=== PATIENT | female | born 2000 | race Caucasian/White ===

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

== ENCOUNTER 2019-10-21 20:07 | Emergency (ER) | payer BC, OTHER ==
[~2019-10-21] VITALS: Ht 152.4 cm; Wt 56.8 kg
[2019-10-21] MEDS ORDERED: PARO20TA3 (20:15)
[2019-10-21] MEDS ORDERED: XULA1DIS (20:15)
[2019-10-21] MEDS ORDERED: IBUP-1022 PO (21:50)
[2019-10-21 22:05] VITALS: BP 138/99
--- NOTE | 2019-10-22 08:08 | REP ---
Pelvis right hip: Three views. History: Injury in a fall. Findings: AP and frog-leg views right hip and an AP view of the pelvis are presented. Bony pelvic ring is intact. No hip fracture is seen. Femoral heads are smooth and rounded and hip joint spaces are preserved. Periarticular soft tissues are unremarkable. Visualized bowel gas pattern is normal. Impression: Negative AP pelvis and right hip radiographs. Electronically Signed by Luís Mendoza MD 10/22/2019 08:00 A
--- NOTE | 2019-10-22 08:08 | REP ---
Sacrum and coccyx series: Three views. History: Injury in a fall. Findings: AP, tube angled, and lateral views of the sacrum and coccyx show no evidence of sacral or coccygeal fracture or displacement. Presacral soft tissues are not swollen. SI joints are unremarkable. Impression: Negative views of the sacrum and coccyx. No fracture seen. Electronically Signed by Luís Mendoza MD 10/22/2019 08:00 A
--- NOTE | 2019-10-22 08:09 | REP ---
Lumbar spine series: Five views. History: Injury in a fall. Findings: Five views of the lumbar spine show preserved vertebral body heights and normal alignment. Disc spaces are maintained. No fracture or collapse is seen. There is no evidence of spondylolysis or spondylolisthesis. Pedicles and posterior elements are intact. Psoas margins are symmetric. Sacrum and SI joints are unremarkable. Impression: Negative radiographs of the lumbar spine. Electronically Signed by Luís Mendoza MD 10/22/2019 08:01 A
== END 2019-10-21 22:06 | disposition home or self-care (01) ==
LOC: M ED 20:07
DX: S20.221A Contusion of right back wall of thorax, initial encounter (principal); S70.01XA Contusion of right hip, initial encounter; F41.9 Anxiety disorder, unspecified; F32.9 Major depressive disorder, single episode, unspecified; W17.89XA Other fall from one level to another, initial encounter; Y93.52 Activity, horseback riding; Y92.89 Other specified places as the place of occurrence of the external cause; Y99.8 Other external cause status

== ENCOUNTER → 2019-11-15 | Outpatient (CLI) | payer BC, OTHER ==
[~2019-11-15] MED LIST changes: +IBUP-1022 PO; +PARO20TA3; +XULA1DIS
== END ==
LOC: M LABSMTC 12:21
PROVIDERS: ATTEND Family Medicine
DX: Z11.59 Encounter for screening for other viral diseases (principal); Z20.828 Contact with and (suspected) exposure to other viral communicable diseases
CPT/HCPCS: C9803; U0003

== ENCOUNTER → 2020-01-23 | Outpatient (CLI) | payer BC, OTHER ==
--- NOTE | 2020-01-29 13:54 | REP ---
THYROID ULTRASOUND HISTORY: Goiter. TECHNIQUE: Real-time sonographic evaluation of thyroid performed bilaterally. FINDINGS: Thyroid is essentially normal in size, right lobe measuring 4.5 x 1.5 x 1.4 cm and left lobe 4.3 x 1.3 x 1.4 cm. No cystic or solid nodule is seen bilaterally. IMPRESSION: Unremarkable ultrasound thyroid as discussed above. MTDD
== END ==
LOC: M RAD 11:31
PROVIDERS: ATTEND Nurse Practitioner Family
DX: E04.0 Nontoxic diffuse goiter (principal)

== ENCOUNTER 2021-04-02 17:54 | Emergency (ER) | payer BC, OTHER ==
[~2021-04-02] VITALS: Ht 149.9 cm; Wt 64.4 kg
[2021-04-02 17:59] VITALS: BP 117/73
--- OUTSIDE RECORDS SUMMARY | 2021-04-02 18:07 | CCD ---
Author Author [facility] Organization [facility] Address Unknown Phone Unavailable Care Team Providers Care Professional Soccer Player Name Role Phone Maring, Rosalino PA Unavailable Unavailable Maring, Rosalino PA Unavailable Unavailable Maring, Rosalino PA Unavailable Unavailable Maring, Rosalino PA Unavailable Unavailable Maring, Rosalino PA Unavailable Unavailable Maring, Rosalino PA Unavailable Unavailable Maring, Rosalino PA Unavailable Unavailable Maring, Rosalino PA Unavailable Unavailable Maring, Rosalino PA Unavailable Unavailable Maring, Rosalino PA Unavailable Unavailable Maring, Rosalino PA Unavailable Unavailable Maring, Rosalino PA Unavailable Unavailable Maring, Rosalino PA Unavailable Unavailable Maring, Rosalino PA Unavailable Unavailable Maring, Rosalino PA Unavailable Unavailable Maring, Rosalino PA Unavailable Unavailable Zhang, L Daronda BENEFIT SPECIALIST Unavailable Unavailable Zhang, L Daronda BENEFIT SPECIALIST Unavailable Unavailable Zhang, L Daronda BENEFIT SPECIALIST Unavailable Unavailable Zhang, L Daronda BENEFIT SPECIALIST Unavailable Unavailable Zhang, L Daronda BENEFIT SPECIALIST Unavailable Unavailable Zhang, L Daronda BENEFIT SPECIALIST Unavailable Unavailable Zhang, L Daronda BENEFIT SPECIALIST Unavailable Unavailable Zhang, L Daronda BENEFIT SPECIALIST Unavailable Unavailable Zhang, L Daronda BENEFIT SPECIALIST Unavailable Unavailable Zhang, L Daronda BENEFIT SPECIALIST Unavailable Unavailable Zhang, L Daronda BENEFIT SPECIALIST Unavailable Unavailable Zhang, L Daronda BENEFIT SPECIALIST Unavailable Unavailable Zhang, L Daronda BENEFIT SPECIALIST Unavailable Unavailable Zhang, L Daronda BENEFIT SPECIALIST Unavailable Unavailable LETTIERE, A JORDAN PA Unavailable Unavailable LETTIERE, A JORDAN PA Unavailable Unavailable LETTIERE, A JORDAN PA Unavailable Unavailable LETTIERE, A JORDAN PA Unavailable Unavailable LETTIERE, A JORDAN PA Unavailable Unavailable LETTIERE, A JORDNA PA Unavailable Unavailable LETTIERE, A JORDAN PA Unavailable Unavailable LETTIERE, A JORDAN PA Unavailable Unavailable LETTIERE, A JORDAN PA Unavailable Unavailable LETTIERE, A JORDAN PA Unavailable Unavailable LETTIERE, A JORDAN PA Unavailable Unavailable LETTIERE, A JORDAN PA Unavailable Unavailable LETTIERE, A JORDAN PA Unavailable Unavailable LETTIERE, A JORDAN PA Unavailable Unavailable LETTIERE, A JORDAN PA Unavailable Unavailable LETTIERE, A JORDAN PA Unavailable Unavailable LETTIERE, A JORDAN PA Unavailable Unavailable LETTIERE, A JORDAN PA Unavailable Unavailable LETTIERE, A JORDAN PA Unavailable Unavailable LETTIERE, A JORDAN PA Unavailable Unavailable LETTIERE, A JORDAN PA Unavailable Unavailable LETTIERE, A JORDAN PA Unavailable Unavailable LETTIERE, A JORDAN PA Unavailable Unavailable LETTIERE, A JORDAN PA Unavailable Unavailable LETTIERE, A JORDAN PA Unavailable Unavailable LETTIERE, A JORDAN PA Unavailable Unavailable LETTIERE, A JORDAN PA Unavailable Unavailable LETTIERE, A JORDAN PA Unavailable Unavailable LETTIERE, A JORDAN PA Unavailable Unavailable LETTIERE, A JORDAN PA Unavailable Unavailable LETTIERE, A JORDAN PA Unavailable Unavailable Yosha, Wyatt Unavailable Unavailable Yosha, Wyatt Unavailable Unavailable Yosha, Wyatt Unavailable Unavailable Yosha, Wyatt Unavailable Unavailable Haris, Daniel Meadows MD Unavailable Unavailable Haris, Daniel Meadows MD Unavailable Unavailable Haris, Daniel Meadows MD Unavailable Unavailable Haris, Daniel Meadows MD Unavailable Unavailable Haris, Daniel Meadows MD Unavailable Unavailable Haris, Daniel Meadows MD Unavailable Unavailable Haris, Daniel Meadows MD Unavailable Unavailable Haris, Daniel Meadows MD Unavailable Unavailable Haris, Daniel Meadows MD Unavailable Unavailable Haris, Daniel Meadows MD Unavailable Unavailable Haris, Daniel Meadows MD Unavailable Unavailable Haris, Daniel Meadows MD Unavailable Unavailable Haris, Daniel Meadows MD Unavailable Unavailable Haris, Daniel Meadows MD Unavailable Unavailable Haris, Daniel Meadows MD Unavailable Unavailable Haris, Daniel Meadows MD Unavailable Unavailable Haris, Daniel Meadows MD Unavailable Unavailable Haris, Daniel Meadows MD Unavailable Unavailable Haris, Daniel Meadows MD Unavailable Unavailable Haris, Daniel Meadows MD Unavailable Unavailable Haris, Daniel Meadows MD Unavailable Unavailable Haris, Daniel Meadows MD Unavailable Unavailable Haris, Daniel Meadows MD Unavailable Unavailable Haris, Daniel Meadows MD Unavailable Unavailable Haris, A Dori LOZOYA Unavailable Unavailable Haris, A Dori LOZOYA Unavailable Unavailable Haris, A Dori LOZOYA Unavailable Unavailable Haris, A Dori LOZOYA Unavailable Unavailable Haris, A Dori LOZOYA Unavailable Unavailable Haris, Daniel Meadows MD Unavailable Unavailable Haris, Daniel Meadows MD Unavailable Unavailable Haris, A Dori LOZOYA Unavailable Unavailable Haris, A Dori LOZOYA Unavailable Unavailable Haris, A Dori LOZOYA Unavailable Unavailable Haris, A Dori LOZOYA Unavailable Unavailable Haris, Daniel Meadows MD Unavailable Unavailable Haris, Daniel Meadows MD Unavailable Unavailable Haris, Daniel Meadows MD Unavailable Unavailable Haris, Daniel Meadows MD Unavailable Unavailable Haris, A Dori LOZOYA Unavailable Unavailable Haris, A Dori LOZOYA Unavailable Unavailable Haris, A Dori LOZOYA Unavailable Unavailable Haris, A Dori LOZOYA Unavailable Unavailable Haris, Daniel Meadows MD Unavailable Unavailable Haris, Daniel Meadows MD Unavailable Unavailable Haris, Daniel Meadows MD Unavailable Unavailable Haris, Daniel Meadows MD Unavailable Unavailable Haris, Daniel Meadows MD Unavailable Unavailable Haris, Daniel Meadows MD Unavailable Unavailable Haris, Daniel Meadows MD Unavailable Unavailable Haris, Daniel Meadows MD Unavailable Unavailable Haris, Daniel Meadows MD Unavailable Unavailable Haris, Daniel Meadows MD Unavailable Unavailable Haris, Daniel Meadows MD Unavailable Unavailable Haris, Daniel Meadows MD Unavailable Unavailable Haris, Daniel Meadows MD Unavailable Unavailable Haris, Daniel Meadows MD Unavailable Unavailable Haris, Daniel Meadows MD Unavailable Unavailable Haris, Daniel Meadows MD Unavailable Unavailable Haris, Daniel Meadows MD Unavailable Unavailable Haris, Daniel Meadows MD Unavailable Unavailable Haris, Daniel Meadows MD Unavailable Unavailable Haris, Daniel Meadows MD Unavailable Unavailable Haris, Daniel Meadows MD Unavailable Unavailable Haris, Daniel Meadows MD Unavailable Unavailable Haris, Daniel Meadows MD Unavailable Unavailable Haris, Daniel Meadows MD Unavailable Unavailable Haris, Daniel Meadows MD Unavailable Unavailable Haris, Daniel Meadows MD Unavailable Unavailable Haris, A Dori LOZOYA Unavailable Unavailable Haris, A Dori LOZOYA Unavailable Unavailable Haris, A Dori LOZOYA Unavailable Unavailable Haris, A Dori LOZOYA Unavailable Unavailable Haris, A Dori LOZOYA Unavailable Unavailable Haris, A Dori LOZOYA Unavailable Unavailable Haris, A Dori LOZOYA Unavailable Unavailable Haris, A Dori LOZOYA Unavailable Unavailable Haris, A Droi LOZOYA Unavailable Unavailable Haris, A Dori LOZOYA Unavailable Unavailable Haris, A Dori LOZOYA Unavailable Unavailable Haris, A Dori LOZOYA Unavailable Unavailable Haris, A Dori LOZOYA Unavailable Unavailable Haris, A Dori LOZOYA Unavailable Unavailable PATEL, A TAFIEA VOCATIONAL NURSE LVN Unavailable Unavailable PATEL, A TAFIEA VOCATIONAL NURSE LVN Unavailable Unavailable PATEL, A TAFIEA VOCATIONAL NURSE LVN Unavailable Unavailable PATEL, A TAFIEA VOCATIONAL NURSE LVN Unavailable Unavailable PATEL, A TAFIEA VOCATIONAL NURSE LVN Unavailable Unavailable PATEL, A TAFIEA VOCATIONAL NURSE LVN Unavailable Unavailable PATEL, A TAFIEA VOCATIONAL NURSE LVN Unavailable Unavailable PATEL, A TAFIEA VOCATIONAL NURSE LVN Unavailable Unavailable PATEL, A TAFIEA VOCATIONAL NURSE LVN Unavailable Unavailable PATEL, A TAFIEA VOCATIONAL NURSE LVN Unavailable Unavailable PATEL, A TAFIEA VOCATIONAL NURSE LVN Unavailable Unavailable PATEL, A TAFIEA VOCATIONAL NURSE LVN Unavailable Unavailable PATEL, A TAFIEA VOCATIONAL NURSE LVN Unavailable Unavailable PATEL, A TAFIEA VOCATIONAL NURSE LVN Unavailable Unavailable PATEL, A TAFIEA VOCATIONAL NURSE LVN Unavailable Unavailable PATEL, A TAFIEA VOCATIONAL NURSE LVN Unavailable Unavailable PATEL, A TAFIEA VOCATIONAL NURSE LVN Unavailable Unavailable PATEL, A TAFIEA VOCATIONAL NURSE LVN Unavailable Unavailable PATEL, A TAFIEA VOCATIONAL NURSE LVN Unavailable Unavailable PATEL, A TAFIEA VOCATIONAL NURSE LVN Unavailable Unavailable PATEL, A TAFIEA VOCATIONAL NURSE LVN Unavailable Unavailable PATEL, A TAFIEA VOCATIONAL NURSE LVN Unavailable Unavailable PATEL, A TAFIEA VOCATIONAL NURSE LVN Unavailable Unavailable PATEL, A TAFIEA VOCATIONAL NURSE LVN Unavailable Unavailable PATEL, A TAFIEA VOCATIONAL NURSE LVN Unavailable Unavailable PATEL, A TAFIEA VOCATIONAL NURSE LVN Unavailable Unavailable PATEL, A TAFIEA VOCATIONAL NURSE LVN Unavailable Unavailable PATEL, A TAFIEA VOCATIONAL NURSE LVN Unavailable Unavailable PATEL, A TAFIEA VOCATIONAL NURSE LVN Unavailable Unavailable PATEL, A TAFIEA VOCATIONAL NURSE LVN Unavailable Unavailable PATEL, A TAFIEA VOCATIONAL NURSE LVN Unavailable Unavailable PATEL, A TAFIEA VOCATIONAL NURSE LVN Unavailable Unavailable PATEL, A TAFIEA VOCATIONAL NURSE LVN Unavailable Unavailable PATEL, A TAFIEA VOCATIONAL NURSE LVN Unavailable Unavailable PATEL, A TAFIEA VOCATIONAL NURSE LVN Unavailable Unavailable PATEL, A TAFIEA VOCATIONAL NURSE LVN Unavailable Unavailable PATEL, A TAFIEA VOCATIONAL NURSE LVN Unavailable Unavailable PATEL, A TAFIEA VOCATIONAL NURSE LVN Unavailable Unavailable PATEL, A TAFIEA VOCATIONAL NURSE LVN Unavailable Unavailable PATEL, A TAFIEA VOCATIONAL NURSE LVN Unavailable Unavailable PATEL, A TAFIEA VOCATIONAL NURSE LVN Unavailable Unavailable PATEL, A TAFIEA VOCATIONAL NURSE LVN Unavailable Unavailable PATEL, A TAFIEA VOCATIONAL NURSE LVN Unavailable Unavailable PATEL, A TAFIEA VOCATIONAL NURSE LVN Unavailable Unavailable PATEL, A TAFIEA VOCATIONAL NURSE LVN Unavailable Unavailable PATEL, A TAFIEA VOCATIONAL NURSE LVN Unavailable Unavailable PATEL, A TAFIEA VOCATIONAL NURSE LVN Unavailable Unavailable PATEL, A TAFIEA VOCATIONAL NURSE LVN Unavailable Unavailable PATEL, A TAFIEA VOCATIONAL NURSE LVN Unavailable Unavailable PATEL, A TAFIEA VOCATIONAL NURSE LVN Unavailable Unavailable PTAEL, A TAFIEA VOCATIONAL NURSE LVN Unavailable Unavailable PATEL, A TAFIEA VOCATIONAL NURSE LVN Unavailable Unavailable POTTER, VAZQUEZ Unavailable Unavailable POTTER, VAZQUEZ Unavailable Unavailable POTTER, VAZQUEZ Unavailable Unavailable POTTER, VAZQUEZ Unavailable Unavailable POTTER, VAZQUEZ Unavailable Unavailable Talat Moreno MD Unavailable Unavailable Talat Moreno MD Unavailable Unavailable Talat Moreno MD Unavailable Unavailable Talat Moreno MD Unavailable Unavailable Talat Moreno MD Unavailable Unavailable Talat Moreno MD Unavailable Unavailable Talat Moreno MD Unavailable Unavailable Talat Moreno MD Unavailable Unavailable Talat Moreno MD Unavailable Unavailable Talat Moreno MD Unavailable Unavailable Talat Moreno MD Unavailable Unavailable Talat Moreno MD Unavailable Unavailable Talat Moreno MD Unavailable Unavailable Talat Moreno MD Unavailable Unavailable aTlat Moreno MD Unavailable Unavailable Talat Moreno MD Unavailable Unavailable Talat Moreno MD Unavailable Unavailable Talat Moreno MD Unavailable Unavailable Talat Moreno MD Unavailable Unavailable Talat Moreno MD Unavailable Unavailable Talat Moreno MD Unavailable Unavailable Talat Moreno MD Unavailable Unavailable Talat Moreno MD Unavailable Unavailable Talat Moreno MD Unavailable Unavailable Talat Moreno MD Unavailable Unavailable Re-disclosure Warning The records that you are about to access may contain information from federally-assisted alcohol or drug abuse programs. If such information is present, then the following federally mandated warning applies: This information has been disclosed to you from records protected by federal confidentiality rules (42 CFR part 2). The federal rules prohibit you from making any further disclosure of this information unless further disclosure is expressly permitted by the written consent of the person to whom it pertains or as otherwise permitted by 42 CFR part 2. A general authorization for the release of medical or other information is NOT sufficient for this purpose. The Federal rules restrict any use of the information to criminally investigate or prosecute any alcohol or drug abuse patient.The records that you are about to access may contain highly sensitive health information, the redisclosure of which is protected by Article 27-F of the [place] Public Health law. If you continue you may have access to information: Regarding HIV / AIDS; Provided by facilities licensed or operated by the [place] Office of Mental Health; or Provided by the [place] Office for People With Developmental Disabilities. If such information is present, then the following [place] [facility] mandated warning applies: This information has been disclosed to you from confidential records which are protected by state law. State law prohibits you from making any further disclosure of this information without the specific written consent of the person to whom it pertains, or as otherwise permitted by law. Any unauthorized further disclosure in violation of state law may result in a fine or correction sentence or both. A general authorization for the release of medical or other information is NOT sufficient authorization for further disc losure. Family History Family Member Name Family Member Gender Family Member Status Date o f Status Description Data Source(s) Unknown Male Diagnosis 04/14/2016 12:00:00 AM EST [facility] ([facility]) Unknown Male Diagnosis 04/14/2016 12:00:00 AM EST [facility] ([facility]) Unknown Condition [facility] Unknown Condition [facility] Encounters Encounter Providers Location Date Indications Data Source(s ) Outpatient Attender: Deanna Moreno MD 1 12:41:33 PM EDT - 02/20/2021 01:47:12 PM EDT [facility] ([facility]) Attender: Wyatt Lyles [facility] 0 11/17/2020 11:24:00 AM EDT - 11/17/2020 11:24:00 AM EDT [facility] ([facility]) Attender: Wyatt Lyles [facility] 0 11/15/2020 10:50:00 AM EDT - 11/15/2020 10:50:00 AM EDT [facility] ([facility]) Attender: VAZQUEZ HOUGH [facility] 12:05:00 PM EDT - 10/26/2020 12:05:00 PM EDT [facility] ([facility]) Attender: VAZQUEZ REYEZNY [facility] 11:43:00 AM EDT - 10/25/2020 11:43:00 AM EDT [facility] ([facility]) Attender: Calvin VILLARREAL [facility] [place] 10:43:00 PM EDT - 10/21/2020 10:43:00 PM EDT [facility] ([facility]) Attender: Calvin VILLARREAL [facility] [place] 10:35:00 PM EDT - 10/21/2020 10:35:00 PM EDT [facility] ([facility]) Attender: Dori Moya 08:35:00 AM EDT - 10/20/2020 08:35:00 AM EDT [facility] ([facility]) Attender: BRENDA PATEL NP [facility] [place] 10/18 03:00:00 PM EDT - 10/18/2020 03:00:00 PM EDT Body mass index (BMI) 26.0-26.9, adultEn counter for initial prescription of contraceptive pillsEncounter for oth general cnsl and advice on contraceptionEncounter for elective termination of pregnancyProblems related to unwanted [facility] Body mass index (BMI) 26.0-26.9, adult Encounter for initial prescription of co ntraceptive pills Encounter for oth general cnsl and advic e on contraception Encounter for elective termination of pr egnancy Problems related to unwanted Attender: BRENDA PATEL NP [facility] [place] 09/30 02:25:00 PM EDT - 09/30/2020 02:25:00 PM EDT Encounter for oth general cnsl and advic e on contraceptionEncntr screen for dis of the bld/bld-form org/immun mechnsmProblems related to unwanted pregnancyEncntr screen for infections w sexl mode of transmiss [facility]) Encounter for oth general cnsl and advic e on contraception Encntr screen for dis of the bld/bld-for m org/immun mechnsm Problems related to unwanted Encntr screen for infections w sexl mode of transmiss [place] [address] [facility] [address] 08/23/2020 12:00:00 AM EDT [facility]CW1 ([facility]) [place] [address] [address] 07/27/2020 12:00:00 AM EDT eCW1 ([facility]) Outpatient [address] [address] [address] 07/23/2020 12:00:00 AM EDT [facility]CW1 ([facility]) Outpatient Attender: Rosalino HEMPHILL 07/21/19 12:19:25 PM EDT - 07/20/2020 12:34:48 PM EDT [facility] ([facility] ) Outpatient Attender: JORDAN Boland Prim macario 02/09/2020 03:30:00 PM EDT [facility] ([facility], [facility]) Immunizations Vaccine Date Status Description Data Source(s) COVID-19 VACCINE Freddy 08/05/2020 12:00:00 AM EDT completed [facility] Vaccine Series Complete: YESThis Data wa s Submitted to [facility] Via [facility]. Medications Medication Brand Name Start Date Product Form Dose Route Admi nistrative Instructions Pharmacy Instructions Status Indications Reaction Description Data Source(s) Misoprostol 0.2 MG Oral Tablet misoprostol 200 mcg tab let misoprostol 200 mcg tablet 10/18/2020 12:00:00 AM EDT completed 4 tabs buccally 24-48 hrs after mifepristone (#4) [facility] ([facility]) Sprintec (28) 0.25 mg-35 mcg tablet {21 (ethinyl estra diol 0.035 MG / norgestimate 0.25 MG Oral Tablet) / 7 (inert ingredients 1 MG Oral Tablet) } Pack 10/18/2020 12:00:00 AM EDT 1.00 {tablet} ORAL acti ve Sprintec 28 Day Pack [facility] ([facility]) Mifepristone 200 MG Oral Tablet mifepristone 200 mg ta blet mifepristone 200 mg tablet 10/18/2020 12:00:00 AM EDT completed 1 tab po administered to pt in clinic [facility] ([facility]) Ibuprofen 800 MG Oral Tablet ibuprofen 800 mg tablet ibuprof en 800 mg tablet 10/18/2020 12:00:00 AM EDT completed 1 tab po q 8 hrs prn pain [facility] ([facility]) MDD=3 Acetaminophen 500 MG Oral Tablet Acetaminophen Pain Re lief 500 mg tablet Acetaminophen Pain Relief 500 mg tablet 10/18/2020 12:00:00 AM EDT completed 2 PO q8 hrs prn pain, max dose 6 tabs per day (max 3000mg/day) [facility] ([facility]) Complete 14 mg iron-400 mcg tablet 21/iron fu/folic acid 09/30/2020 12:00:00 AM EDT active Take 1 tab PO QD. [facility] ([facility]) Clobetasol Propionate 0.5 MG/ML Medicated Shampoo [Aura sterling] Clobex 0.05 % Clobex 0.05 % 07/23/2020 12:00:00 AM EDT 1.0 {application} active Clobex 0.05 % eCW1 ([facility]) Clobetasol Propionate 0.5 MG/ML Medicated Shampoo [Aura sterling] Clobex 0.05 % Clobex 0.05 % 07/23/2020 12:00:00 AM EDT 1.0 {application} active Clobex 0.05 % eCW1 ([facility]) Fluocinonide 0.5 MG/ML Topical Solution Fluocinonide 0.05 % Fluocinonide 0.05 % 07/23/2020 12:00:00 AM EDT 1.0 {application} act yoel Fluocinonide 0.05 % eCW1 ([facility]) Fluocinonide 0.5 MG/ML Topical Solution Fluocinonide 0.05 % Fluocinonide 0.05 % 07/23/2020 12:00:00 AM EDT 1.0 {application} act yoel Fluocinonide 0.05 % eCW1 ([facility]) Fluocinonide 0.5 MG/ML Topical Solution Fluocinonide 0.05 % Fluocinonide 0.05 % 07/23/2020 12:00:00 AM EDT 1.0 {application} act yoel Fluocinonide 0.05 % eCW1 ([facility]) Clobetasol Propionate 0.5 MG/ML Medicated Shampoo [Aura sterling] Clobex 0.05 % Clobex 0.05 % 07/23/2020 12:00:00 AM EDT 1.0 {application} active Clobex 0.05 % eCW1 ([facility]) Trazodone Hydrochloride 50 MG Oral Tablet trazodone 50 mg tablet trazodone 50 mg tablet completed [facility] ([facility]) Insurance Providers Payer name Policy type / Coverage type Policy ID Covered democrat ID Covered democrat's relationship to macias Policy Macias Plan Information [employer] [id number] Parent [id number] [facility] Commercial Insurance Co. [id number] Parent [id number] FFS Self Pay [id number] Self [id number] BCBS EMPIRE YONY DIV [id number] [id number] [facility] [id number] FA2 [id number] [employer] Other 0 [id number] Family Dependent Aly O jaspreet 0 GHI P [id number] P [id number] UNITED HEALTHCARE O [id number] S [id number] [employer] Other 0 [id number] Family Dependent Aly O jaspreet 0 [employer] Other 0 [id number] Family Dependent Aly O jaspreet 0 [employer] Other 0 [id number] Family Dependent Aly O jaspreet 0 [employer] Other 0 [id number] Family Dependent Aly O jaspreet 0 [facility] Commercial [id number] Family Dependent [id number] [employer] Other 0 [id number] Family Dependent Aly O jaspreet 0 BCBS EMPIRE YONY DIV [id number] [id number] [facility] EMPIR [employer] CLAIMS ONLY [id number] FA2 [id number] [facility] [id number] FA2 [id number] [employer] Other 0 [id number] Family Dependent Aly O jaspreet 0 [facility] Commercial [id number] Family Dependent [id number] [employer] Other 0 [id number] Family Dependent Aly O jaspreet 0 [employer] Other 0 [id number] Family Dependent Aly O Jaspreet 0 [employer] Other 0 [id number] Family Dependent Aly O Jaspreet 0 [employer] Other 0 [id number] Family Dependent Aly O Jaspreet 0 [employer] Other 0 [id number] Family Dependent Aly O Jaspreet 0 [employer] Other 0 [id number] Family Dependent Aly O Jaspreet 0 [facility] [id number] SP [id number] [facility] [id number] [facility] DIV [id number] SP [id number] Problems, Conditions, and Diagnoses Code Display Name Description Problem Type Effective Dates Data Source(s) L40.9 [id number] Scalp psoriasis Problem 07/23/2020 12:00:00 AM EDT eCW1 ([facility]) Surgeries/Procedures Procedure Description Date Indications Data Source(s) Misoprostol #4 oral, 200 mcg 10/18/2020 12:00:00 AM EDT - 10/18/2020 12:00:00 AM EDT [facility] ([facility]) Mifepristone, oral, 200 mg 10/18/2020 12 :00:00 AM EDT - 10/18/2020 12:00:00 AM EDT [facility] ([facility]) OFFICE/OUTPATIENT VISIT, EST 10/18/2020 12:00:00 AM EDT - 10/18/2020 12:00:00 AM EDT [facility] ([facility]) OFFICE/OUTPATIENT VISIT, EST 09/30/2020 12:00:00 AM EDT - 09/30/2020 12:00:00 AM EDT [facility] ([facility]) TRANSVAGINAL US, OBSTETRIC 09/30/2020 12 :00:00 AM EDT - 09/30/2020 12:00:00 AM EDT [facility] ([facility]) N.GONORRHOEAE, DNA, AMP PROB 09/30/2020 12:00:00 AM EDT - 09/30/2020 12:00:00 AM EDT [facility] ([facility]) CHYLMD TRACH, DNA, AMP PROBE 09/30/2020 12:00:00 AM EDT - 09/30/2020 12:00:00 AM EDT [facility] ([facility]) HEMOGLOBIN 09/30/2020 12:00:00 AM EDT - 09/30/2020 1 2:00:00 AM EDT [facility] ([facility]) Results ID Date Data Source [id number] 09/30/2020 03:11:34 PM EDT [facility] ([facility]) Name Value Range Interpretation Code Description Data Valery rce(s) Supporting Document(s) 12.60 gm/dL Hemoglobin [facility] ([facility]) ID Date Data Source [id number] 09/30/2020 12:00:00 AM EDT [facility] ([facility]) Name Value Range Interpretation Code Description Data Valery rce(s) Supporting Document(s) Negative Normal (applies to non-numeric resul ts) Urine CT/GC Combo - GC NextGen ([facility]) : Yes Performed by: CDD ([id number]) ID Date Data Source [id number] 09/30/2020 12:00:00 AM EDT NextGen ([facility]) Name Value Range Interpretation Code Description Data Valery rce(s) Supporting Document(s) Negative Normal (applies to non-numeric resul ts) Urine CT/GC Combo - CT NextGen ([facility]) Procedure Social History Code Duration Value Status Description Data Source(s ) Smoking 11/17/2020 12:00:00 AM EDT Never smoker completed Never s moker [facility] ([facility]) Smoking 10/20/2020 12:00:00 AM EDT Never smoker completed Never s moker [facility] ([facility]) Smoking 07/23/2020 12:00:00 AM EDT Never Smoker completed Never S moker eCW1 ([facility]) Smoking 07/23/2020 12:00:00 AM EDT Never Smoker completed Never S moker eCW1 ([facility]) Smoking 07/23/2020 12:00:00 AM EDT Never Smoker completed Never S moker eCW1 ([facility]) Smoking 02/09/2020 12:00:00 AM EDT Patient has never smoked co mpleted Patient has never smoked MEDENT ([facility]) Vital Signs ID Date Data Source UNK Name Value Range Interpretation Code Description Data Source(s) Body height 149.86 cm 149.86 cm [facility] ([facility] Body weight 59.421 kg 59.421 kg [facility] ([facility]) Systolic blood pressure 110 mm[Hg] 110 mm[Hg] N extGen ([facility]) Diastolic blood pressure 70 mm[Hg] 70 mm[Hg] NextGen ([facility]) Body mass index (BMI) [Ratio] 26.46 kg/m2 Overweight 26.46 kg/m2 NextGen ([facility]) Body height 149.86 cm 149.86 cm NextGen ([facility]) Body weight 59.874 kg 59.874 kg NextGen ([facility]) Systolic blood pressure 124 mm[Hg] 124 mm[Hg] N extGen ([facility]) Diastolic blood pressure 72 mm[Hg] 72 mm[Hg] NextGen ([facility]) Body mass index (BMI) [Ratio] 26.66 kg/m2 Overweight 26.66 kg/m2 NextGen ([facility]) Body weight 132 [lb_av] 132 [lb_av] W1 ([facility], [facility]) Body height 60 [in_i] 60 [in_i] eCW1 ([facility]) Body mass index (BMI) [Ratio] 25.78 kg/m2 25.78 kg/m2 eCW1 ([facility]) Systolic blood pressure 126 mm[Hg] 126 mm[Hg] e CW1 ([facility]) Diastolic blood pressure 74 mm[Hg] 74 mm[Hg] eCW1 ([facility]) Systolic blood pressure 112 mm[Hg] 112 mm[Hg] M EDENT ([facility]) Diastolic blood pressure 78 mm[Hg] 78 mm[Hg] MEDENT ([facility]) Heart rate 112 /min 112 /min MEDENT ([facility]) Respiratory rate 14 /min 14 /[facility] Oxygen saturation in Arterial blood by Pulse oximetry 98 % 98 % MEDENT ([facility]) Body temperature 99.2 [degF] 99.2 [degF] MEDENT ([facility]) Body weight 120.00 [lb_av] 120.00 [lb_av] MEDEN T ([facility]) Body height 59 [in_i] 59 [in_i] MEDENT ([facility]) 4'11" Body mass index (BMI) [Ratio] 24.2 kg/m2 24.2 k g/m2 MEDENT ([facility]) Patient Treatment Plan of Care Planned Activity Planned Date Details Description Data Source (s) Mifepristone 200 MG Oral Tablet 10/18/2020 12:00:00 AM EDT [facility] Ibuprofen 800 MG Oral Tablet 10/18/2020 12:00:00 AM EDT Critical access hospital [facility] Sprintec (28) 0.25 mg-35 mcg tablet 10/18/2020 12:00:00 AM EDT [facility] ([facility]) Acetaminophen 500 MG Oral Tablet 10/18/2020 12:00:00 AM EDT NextGen ([facility]) Misoprostol 0.2 MG Oral Tablet 10/18/2020 12:00:00 AM EDT NextGen ([facility]) Complete 14 mg iron-400 mcg tablet 09/30/2020 12:00:00 AM EDT [facility] ([facility]) Fluocinonide 0.5 MG/ML Topical Solution 07/23/2020 12:00:00 AM EDT eCW1 ([facility]) Clobetasol Propionate 0.5 MG/ML Medicated Shampoo [Aura sterling] 07/23/2020 12:00:00 AM EDT eCW1 ([facility]) Fluocinonide 0.5 MG/ML Topical Solution 07/23/2020 12:00:00 AM EDT eCW1 ([facility]) Clobetasol Propionate 0.5 MG/ML Medicated Shampoo [Aura sterling] 07/23/2020 12:00:00 AM EDT eCW1 ([facility]) Fluocinonide 0.5 MG/ML Topical Solution 07/23/2020 12:00:00 AM EDT eCW1 ([facility]) Clobetasol Propionate 0.5 MG/ML Medicated Shampoo [Aura sterling] 07/23/2020 12:00:00 AM EDT eCW1 ([facility]) Trazodone Hydrochloride 50 MG Oral Tablet [facility] ([facility])
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
--- OUTSIDE RECORDS SUMMARY | 2021-04-02 21:12 | CCD ---
Author Author [facility] Organization [facility] Address Unknown Phone Unavailable Care Team Providers Care Mobile Disc Jockey Name Role Phone Maring, Rosalino PA Unavailable [...] Rosalino PA Unavailable Unavailable Zhang, L Daronda JAVASCRIPT WEB DEVELOPER Unavailable Unavailable Zhang, L Daronda JAVASCRIPT WEB DEVELOPER Unavailable Unavailable Zhang, L Daronda JAVASCRIPT WEB DEVELOPER Unavailable Unavailable Zhang, L Daronda JAVASCRIPT WEB DEVELOPER Unavailable Unavailable Zhang, L Daronda JAVASCRIPT WEB DEVELOPER Unavailable Unavailable Zhang, L Daronda JAVASCRIPT WEB DEVELOPER Unavailable Unavailable Zhang, L Daronda JAVASCRIPT WEB DEVELOPER Unavailable Unavailable Zhang, L Daronda JAVASCRIPT WEB DEVELOPER Unavailable Unavailable Zhang, L Daronda JAVASCRIPT WEB DEVELOPER Unavailable Unavailable Zhang, L Daronda JAVASCRIPT WEB DEVELOPER Unavailable Unavailable Zhang, L Daronda JAVASCRIPT WEB DEVELOPER Unavailable Unavailable Zhang, L Daronda JAVASCRIPT WEB DEVELOPER Unavailable Unavailable Zhang, L Daronda JAVASCRIPT WEB DEVELOPER Unavailable Unavailable Zhang, L Daronda JAVASCRIPT WEB DEVELOPER Unavailable Unavailable LETTIERE, A JORDAN PA Unavailable [...] Wyatt Unavailable Unavailable Yosha, Wyatt Unavailable Unavailable Daniel Carballo MD Unavailable Unavailable Daniel Carballo MD Unavailable Unavailable Daniel Carballo MD Unavailable Unavailable Haris, Daniel Meadows MD [...] Unavailable Haris, A Dori LOZOYA Unavailable Unavailable Harsi, A Dori LOZOYA Unavailable Unavailable Haris, A [...] Unavailable Haris, A Dori LOZOYA Unavailable Unavailable Hairs, A Dori LOZOYA Unavailable Unavailable Haris, A Dori MD Unavailable Unavailable Haris, A Dori LOZOYA Unavailable Unavailable Haris, A Dori LOZOYA Unavailable Unavailable Haris, A Dori LOZOYA Unavailable Unavailable Haris, A Dori LOZOYA Unavailable Unavailable Haris, A Dori MD Unavailable Unavailable Haris, A Dori MD Unavailable Unavailable Haris, A Dori LOZOYA Unavailable Unavailable Haris, A Dori MD Unavailable Unavailable Haris, A Dori LOZOYA Unavailable Unavailable Haris, A Dori LOZOYA Unavailable Unavailable Haris, A Dori MD Unavailable Unavailable Haris, A Dori MD Unavailable Unavailable Haris, A Dori MD Unavailable Unavailable Haris, A Dori MD Unavailable Unavailable Haris, A Dori MD Unavailable Unavailable PATEL, A TAFIEA PRECISION AIRCRAFT STRUCTURE ASSEMBLER Unavailable Unavailable PATEL, A TAFIEA PRECISION AIRCRAFT STRUCTURE ASSEMBLER Unavailable Unavailable PATEL, A TAFIEA PRECISION AIRCRAFT STRUCTURE ASSEMBLER Unavailable Unavailable PATEL, A TAFIEA PRECISION AIRCRAFT STRUCTURE ASSEMBLER Unavailable Unavailable PATEL, A TAFIEA PRECISION AIRCRAFT STRUCTURE ASSEMBLER Unavailable Unavailable PATEL, A TAFIEA PRECISION AIRCRAFT STRUCTURE ASSEMBLER Unavailable Unavailable PATEL, A TAFIEA PRECISION AIRCRAFT STRUCTURE ASSEMBLER Unavailable Unavailable PATEL, A TAFIEA PRECISION AIRCRAFT STRUCTURE ASSEMBLER Unavailable Unavailable PATEL, A TAFIEA PRECISION AIRCRAFT STRUCTURE ASSEMBLER Unavailable Unavailable PATEL, A TAFIEA PRECISION AIRCRAFT STRUCTURE ASSEMBLER Unavailable Unavailable PATEL, A TAFIEA PRECISION AIRCRAFT STRUCTURE ASSEMBLER Unavailable Unavailable PATEL, A TAFIEA PRECISION AIRCRAFT STRUCTURE ASSEMBLER Unavailable Unavailable PATEL, A TAFIEA PRECISION AIRCRAFT STRUCTURE ASSEMBLER Unavailable Unavailable PATEL, A TAFIEA PRECISION AIRCRAFT STRUCTURE ASSEMBLER Unavailable Unavailable PATEL, A TAFIEA PRECISION AIRCRAFT STRUCTURE ASSEMBLER Unavailable Unavailable PATEL, A TAFIEA PRECISION AIRCRAFT STRUCTURE ASSEMBLER Unavailable Unavailable PATEL, A TAFIEA PRECISION AIRCRAFT STRUCTURE ASSEMBLER Unavailable Unavailable PATEL, A TAFIEA PRECISION AIRCRAFT STRUCTURE ASSEMBLER Unavailable Unavailable PATEL, A TAFIEA PRECISION AIRCRAFT STRUCTURE ASSEMBLER Unavailable Unavailable PATEL, A TAFIEA PRECISION AIRCRAFT STRUCTURE ASSEMBLER Unavailable Unavailable PATEL, A TAFIEA PRECISION AIRCRAFT STRUCTURE ASSEMBLER Unavailable Unavailable PATEL, A TAFIEA PRECISION AIRCRAFT STRUCTURE ASSEMBLER Unavailable Unavailable PATEL, A TAFIEA PRECISION AIRCRAFT STRUCTURE ASSEMBLER Unavailable Unavailable PATEL, A TAFIEA PRECISION AIRCRAFT STRUCTURE ASSEMBLER Unavailable Unavailable PATEL, A TAFIEA PRECISION AIRCRAFT STRUCTURE ASSEMBLER Unavailable Unavailable PATEL, A TAFIEA PRECISION AIRCRAFT STRUCTURE ASSEMBLER Unavailable Unavailable PATEL, A TAFIEA PRECISION AIRCRAFT STRUCTURE ASSEMBLER Unavailable Unavailable PATEL, A TAFIEA PRECISION AIRCRAFT STRUCTURE ASSEMBLER Unavailable Unavailable PATEL, A TAFIEA PRECISION AIRCRAFT STRUCTURE ASSEMBLER Unavailable Unavailable PATEL, A TAFIEA PRECISION AIRCRAFT STRUCTURE ASSEMBLER Unavailable Unavailable PATEL, A TAFIEA PRECISION AIRCRAFT STRUCTURE ASSEMBLER Unavailable Unavailable PATEL, A TAFIEA PRECISION AIRCRAFT STRUCTURE ASSEMBLER Unavailable Unavailable PATEL, A TAFIEA PRECISION AIRCRAFT STRUCTURE ASSEMBLER Unavailable Unavailable PATEL, A TAFIEA PRECISION AIRCRAFT STRUCTURE ASSEMBLER Unavailable Unavailable PATEL, A TAFIEA PRECISION AIRCRAFT STRUCTURE ASSEMBLER Unavailable Unavailable PATEL, A TAFIEA PRECISION AIRCRAFT STRUCTURE ASSEMBLER Unavailable Unavailable PATEL, A TAFIEA PRECISION AIRCRAFT STRUCTURE ASSEMBLER Unavailable Unavailable PATEL, A TAFIEA PRECISION AIRCRAFT STRUCTURE ASSEMBLER Unavailable Unavailable PATEL, A TAFIEA PRECISION AIRCRAFT STRUCTURE ASSEMBLER Unavailable Unavailable PATEL, A TAFIEA PRECISION AIRCRAFT STRUCTURE ASSEMBLER Unavailable Unavailable PATEL, A TAFIEA PRECISION AIRCRAFT STRUCTURE ASSEMBLER Unavailable Unavailable PATEL, A TAFIEA PRECISION AIRCRAFT STRUCTURE ASSEMBLER Unavailable Unavailable PATEL, A TAFIEA PRECISION AIRCRAFT STRUCTURE ASSEMBLER Unavailable Unavailable PATEL, A TAFIEA PRECISION AIRCRAFT STRUCTURE ASSEMBLER Unavailable Unavailable PATEL, A TAFIEA PRECISION AIRCRAFT STRUCTURE ASSEMBLER Unavailable Unavailable PATEL, A TAFIEA PRECISION AIRCRAFT STRUCTURE ASSEMBLER Unavailable Unavailable PATEL, A TAFIEA PRECISION AIRCRAFT STRUCTURE ASSEMBLER Unavailable Unavailable PATEL, A TAFIEA PRECISION AIRCRAFT STRUCTURE ASSEMBLER Unavailable Unavailable PATEL, A TAFIEA PRECISION AIRCRAFT STRUCTURE ASSEMBLER Unavailable Unavailable PATEL, A TAFIEA PRECISION AIRCRAFT STRUCTURE ASSEMBLER Unavailable Unavailable PATEL, A TAFIEA PRECISION AIRCRAFT STRUCTURE ASSEMBLER Unavailable Unavailable PATEL, A TAFIEA PRECISION AIRCRAFT STRUCTURE ASSEMBLER Unavailable Unavailable POTTER, VAZQUEZ Unavailable Unavailable POTTER, [...] is protected by Article 27-F of the [facility] Public Health law. If you continue you may have access to information: Regarding HIV / AIDS; Provided by facilities licensed or operated by the [facility] Office of Mental Health; or Provided by the [facility] Office for People With Developmental Disabilities. If such information is present, then the following [facility] mandated warning applies: This information has been [...] law may result in a fine or senior care sentence or both. A general authorization for the release of medical or other information is NOT sufficient authorization for further disc losure. Family History Family Member Name Family Member Gender Family Member Status Date o f Status Description Data Source(s) Unknown Male Diagnosis 04/14/2016 12:00:00 AM EST [facility] ([facility]) Unknown Male Diagnosis 04/14/2016 12:00:00 AM EST [facility] ([facility]) Unknown Condition [facility] Unknown Condition [facility] Encounters Encounter Providers Location Date Indications Data Source(s ) Outpatient Attender: Deanna Moreno MD 1 12:41:33 PM EDT - 02/20/2021 01:47:12 PM EDT [facility] ([facility]) Attender: Wyatt Lyles PPCWNY [facility] Coordination 0 11/17/2020 11:24:00 AM EDT - 11/17/2020 11:24:00 AM EDT [facility] ([facility]) Attender: Wyatt Lyles PPCZACK Care Coordination 0 11/15/2020 10:50:00 AM EDT - 11/15/2020 10:50:00 AM EDT [facility] ([facility]) Attender: VAZQUEZ HOUGH Care Coordination 12:05:00 PM EDT - 10/26/2020 12:05:00 PM EDT [facility] ([facility]) Attender: VAZQUEZ HOUGH Care Coordination 11:43:00 AM EDT - 10/25/2020 11:43:00 AM EDT [facility] ([facility]) Attender: Calvin Zhang JAVASCRIPT WEB DEVELOPER [facility] [place] 10:43:00 PM EDT - 10/21/2020 10:43:00 PM EDT [facility] ([facility]) Attender: Calvin Zhang JAVASCRIPT WEB DEVELOPER [facility] [place] 10:35:00 PM EDT - 10/21/2020 10:35:00 PM EDT [facility] ([facility]) Attender: Dori Moya 08:35:00 AM EDT - 10/20/2020 08:35:00 AM EDT [facility] ([facility]) Attender: BRENDA PATEL NP [facility] [place] 10/18 03:00:00 PM EDT - 10/18/2020 03:00:00 PM EDT Body mass index (BMI) 26.0-26.9, adultEn counter for initial prescription of contraceptive pillsEncounter for oth general cnsl and advice on contraceptionEncounter for elective termination of pregnancyProblems related to unwanted [facility] ([facility]) Body mass index (BMI) 26.0-26.9, adult Encounter for initial prescription of co ntraceptive pills Encounter for oth general cnsl and advic e on contraception Encounter for elective termination of pr egnancy Problems related to unwanted Attender: BRENDA PATEL NP [facility] [place] 09/30 02:25:00 PM EDT - 09/30/2020 02:25:00 PM EDT Encounter for oth general cnsl and advic e on contraceptionEncntr screen for dis of the bld/bld-form org/immun mechnsmProblems related to unwanted pregnancyEncntr screen for infections w sexl mode of transmiss NextGen ([facility]) Encounter for oth general cnsl and advic e on contraception Encntr screen for dis of the bld/bld-for m org/immun mechnsm Problems related to unwanted Encntr screen for infections w sexl mode of transmiss [place] [address] [facility] [address] 08/23/2020 12:00:00 AM EDT eCW1 ([facility]) Unknown [address] [facility] [address] 07/27/2020 12:00:00 AM EDT eCW1 ([facility]) Outpatient [address] [facility] [address] 07/23/2020 12:00:00 AM EDT eCW1 ([facility]) Outpatient Attender: Rosalino HEMPHILL 07/21/19 12:19:25 PM EDT - 07/20/2020 12:34:48 PM EDT [facility]Tap ([facility] ) Outpatient Attender: JORDAN sorto 02/09/2020 03:30:00 PM EDT [facility] ([facility]) Immunizations Vaccine Date Status Description Data Source(s) COVID-19 VACCINE Freddy 08/05/2020 12:00:00 AM EDT completed NYSIIS Vaccine Series Complete: YESThis Data wa s Submitted to [facility] Via [employer]. Medications Medication Brand Name Start Date Product Form Dose Route Admi nistrative Instructions Pharmacy Instructions Status Indications Reaction Description Data Source(s) Misoprostol 0.2 MG Oral Tablet misoprostol 200 mcg tab let misoprostol 200 mcg tablet 10/18/2020 12:00:00 AM EDT completed 4 tabs buccally 24-48 hrs after mifepristone (#4) [facility] ([facility]) Sprintec (28) 0.25 mg-35 mcg tablet {21 (ethinyl estra diol 0.035 MG / norgestimate 0.25 MG Oral Tablet) / 7 (inert ingredients 1 MG Oral Tablet) } Pack 10/18/2020 12:00:00 AM EDT 1.00 {tablet} ORAL acti ve Sprintec 28 Day Pack [facility]Gen ([facility]) Mifepristone 200 MG Oral Tablet mifepristone 200 mg ta blet mifepristone 200 mg tablet 10/18/2020 12:00:00 AM EDT completed 1 tab po administered to pt in clinic [facility] Ibuprofen 800 MG Oral Tablet ibuprofen 800 mg tablet ibuprof en 800 mg tablet 10/18/2020 12:00:00 AM EDT completed 1 tab po q 8 hrs prn pain [facility] MDD=3 Acetaminophen 500 MG Oral Tablet Acetaminophen Pain Re lief 500 mg tablet Acetaminophen Pain Relief 500 mg tablet 10/18/2020 12:00:00 AM EDT completed 2 PO q8 hrs prn pain, max dose 6 tabs per day (max 3000mg/day) FadiaGen ([facility]) Complete 14 mg iron-400 mcg tablet 21/iron fu/folic acid 09/30/2020 12:00:00 AM EDT active Take 1 tab PO QD. Rachana ([facility]) Clobetasol Propionate 0.5 MG/ML Medicated Shampoo [Aura sterling] Clobex 0.05 % Clobex 0.05 % 07/23/2020 12:00:00 AM EDT 1.0 {application} active Clobex 0.05 % eCW1 ([facility]) Clobetasol Propionate 0.5 MG/ML Medicated Shampoo [Aura sterling] Clobex 0.05 % Clobex 0.05 % 07/23/2020 12:00:00 AM EDT 1.0 {application} active Clobex 0.05 % eCW1 ([facility]) Fluocinonide 0.5 MG/ML Topical Solution Fluocinonide 0.05 % Fluocinonide 0.05 % 07/23/2020 12:00:00 AM EDT 1.0 {application} act yoel Fluocinonide 0.05 % eCW1 ([facility]) Fluocinonide 0.5 MG/ML Topical Solution Fluocinonide 0.05 % Fluocinonide 0.05 % 07/23/2020 12:00:00 AM EDT 1.0 {application} act yoel Fluocinonide 0.05 % eCW1 ([facility]) Fluocinonide 0.5 MG/ML Topical Solution Fluocinonide 0.05 % Fluocinonide 0.05 % 07/23/2020 12:00:00 AM EDT 1.0 {application} act yoel Fluocinonide 0.05 % eCW1 ([facility]) Clobetasol Propionate 0.5 MG/ML Medicated Shampoo [Aura sterling] Clobex 0.05 % Clobex 0.05 % 07/23/2020 12:00:00 AM EDT 1.0 {application} active Clobex 0.05 % eCW1 ([facility]) Trazodone Hydrochloride 50 MG Oral Tablet trazodone 50 mg tablet trazodone 50 mg tablet [facility] Insurance Providers Payer name Policy type / Coverage type Policy ID Covered green party ID Covered green party's relationship to macias Policy Macias Plan Information [facility] Commercial Insurance Co. [id number] Parent [id number] [facility] Commercial Insurance Co. [id number] Parent [id number] FFS Self Pay [id number] Self [id number] [facility] [id number] FA2 [id number] [facility] [id number] FA2 [id number] [employer] Other 0 [id number] Family Dependent Aly O jaspreet 0 GHI P [id number] P [id number] UNITED [employer] O [id number] S [id number] [employer] Other 0 [id number] Family Dependent Aly O jaspreet 0 [employer] Other 0 [id number] Family Dependent Aly O jaspreet 0 [employer] Other 0 [id number] Family Dependent Aly O jaspreet 0 [employer] Other 0 [id number] Family Dependent Aly O jaspreet 0 [facility] [id number] Family Dependent [id number] [employer] Other 0 [id number] Family Dependent Aly O jaspreet 0 BS EMPIRE YONY DIV [id number] FA2 [id number] [facility] EUFEMIA IBM CLAIMS ONLY [id number] FA2 [id number] [employer] [id number] FA2 [id number] [employer] Other 0 [id number] Family Dependent Aly O jaspreet 0 [facility] Commercial [id number] Family Dependent [id number] [employer] Other 0 [id number] Family Dependent Aly O jaspreet 0 [employer] Other 0 [id number] Family Dependent Aly O Jaspreet 0 [employer] Other 0 [id number] Family Dependent Aly O Jaspreet 0 [employer] Other 0 [id number] Family Dependent Aly O Jaspreet 0 [employer] Other 0 [id number] Family Dependent Aly O Jaspreet 0 [employer] Other 0 [id number] Family Dependent Aly O Jaspreet 0 [employer] [id number] SP [id number] [facility] [id number] [facility] EUFEMIA BHAKTA DIV [id number] SP [id number] Problems, Conditions, and Diagnoses Code Display Name Description Problem Type Effective Dates Data Source(s) 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 07/23/2020 12:00:00 AM EDT eCW1 ([facility]) Surgeries/Procedures Procedure Description Date Indications Data Source(s) Misoprostol #4 oral, 200 mcg 10/18/2020 12:00:00 AM EDT - 10/18/2020 12:00:00 AM EDT [facility] ([facility]) Mifepristone, oral, 200 mg 10/18/2020 12 :00:00 AM EDT - 10/18/2020 12:00:00 AM EDT [facility] ([facility]) OFFICE/OUTPATIENT VISIT, EST 10/18/2020 12:00:00 AM EDT - 10/18/2020 12:00:00 AM EDT [facility] ([facility]) OFFICE/OUTPATIENT VISIT, EST 09/30/2020 12:00:00 AM EDT - 09/30/2020 12:00:00 AM EDT [facility] ([facility]) TRANSVAGINAL US, OBSTETRIC 09/30/2020 12 :00:00 AM EDT - 09/30/2020 12:00:00 AM EDT [facility] ([facility]) N.GONORRHOEAE, DNA, AMP PROB 09/30/2020 12:00:00 AM EDT - 09/30/2020 12:00:00 AM EDT [facility] ([facility]) CHYLMD TRACH, DNA, AMP PROBE 09/30/2020 12:00:00 AM EDT - 09/30/2020 12:00:00 AM EDT [facility] ([facility]) HEMOGLOBIN 09/30/2020 12:00:00 AM EDT - 09/30/2020 1 2:00:00 AM EDT [facility] Results ID Date Data Source [id number] 09/30/2020 03:11:34 PM EDT Next[facility] ([facility]) Name Value Range Interpretation Code Description Data Valery rce(s) Supporting Document(s) 12.60 gm/dL Hemoglobin Next[facility] ([facility] ID Date Data Source [id number] 09/30/2020 12:00:00 AM EDT NextGen ([facility]) Name Value Range Interpretation Code Description Data Valery rce(s) Supporting Document(s) Negative Normal (applies to non-numeric resul ts) Urine CT/GC Combo - GC NextGen ([facility]) : Yes Performed by: ALDAIR ([id number]) ID Date Data Source [id number] 09/30/2020 12:00:00 AM EDT [facility] ([facility]) Name Value Range Interpretation Code Description Data Valery rce(s) Supporting Document(s) Negative Normal (applies to non-numeric resul ts) Urine CT/GC Combo - CT [facility] Procedure Social History Code Duration Value Status Description Data Source(s ) Smoking 11/17/2020 12:00:00 AM EDT Never smoker completed Never s moker NextGen ([facility]) Smoking 10/20/2020 12:00:00 AM EDT Never smoker completed Never s moker [facility] Smoking 07/23/2020 12:00:00 AM EDT Never Smoker completed Never S moker eCW1 ([facility]) Smoking 07/23/2020 12:00:00 AM EDT Never Smoker completed Never S moker eCW1 ([facility]) Smoking 07/23/2020 12:00:00 AM EDT Never Smoker completed Never S moker eCW1 ([facility]) Smoking 02/09/2020 12:00:00 AM EDT Patient has never smoked co mpleted Patient has never smoked MEDENT ([facility]) Vital Signs ID Date Data Source UNK Name Value Range Interpretation Code Description Data Source(s) Body height 149.86 cm 149.86 cm NextGen ([facility] Body weight 59.421 kg 59.421 kg NextGen ([facility]) Systolic blood pressure 110 mm[Hg] 110 mm[Hg] N extGen ([facility] Diastolic blood pressure 70 mm[Hg] 70 mm[Hg] Next[facility] ([facility] Body mass index (BMI) [Ratio] 26.46 kg/m2 Overweight 26.46 kg/m2 Next[facility] ([facility] Body height 149.86 cm 149.86 cm NextGen ([facility] Body weight 59.874 kg 59.874 kg [facility] Systolic blood pressure 124 mm[Hg] 124 mm[Hg] N extGen ([facility]) Diastolic blood pressure 72 mm[Hg] 72 mm[Hg] [facility] ([facility] Body mass index (BMI) [Ratio] 26.66 kg/m2 Overweight 26.66 kg/m2 Next[facility] ([facility]) Body weight 132 [lb_av] 132 [lb_av] eCW1 ([facility]) Body height 60 [in_i] 60 [in_i] eCW1 ([facility]) Body mass index (BMI) [Ratio] 25.78 kg/m2 25.78 kg/m2 eCW1 ([facility]) Systolic blood pressure 126 mm[Hg] 126 mm[Hg] e CW1 ([facility]) Diastolic blood pressure 74 mm[Hg] 74 mm[Hg] eCW1 ([facility]) Systolic blood pressure 112 mm[Hg] 112 mm[Hg] M EDENT ([facility], [facility]) Respiratory rate 14 /min 14 /min [facility] ( [facility], [facility]) Oxygen saturation in Arterial blood by Pulse oximetry 98 % 98 % [facility] ([facility], [facility]) Body temperature 99.2 [degF] 99.2 [degF] MEDENT ([facility], [facility]) Body weight 120.00 [lb_av] 120.00 [lb_av] MEDEN T ([facility], [facility]) Diastolic blood pressure 78 mm[Hg] 78 mm[Hg] MEDENT ([facility]) Heart rate 112 /min 112 /min MEDENT ([facility]) Body height 59 [in_i] 59 [in_i] MEDENT ([facility]) 4'11" Body mass index (BMI) [Ratio] 24.2 kg/m2 24.2 k g/m2 [facility] ([facility]) Patient Treatment Plan of Care Planned Activity Planned Date Details Description Data Source (s) Mifepristone 200 MG Oral Tablet 10/18/2020 12:00:00 AM EDT [facility] Ibuprofen 800 MG Oral Tablet 10/18/2020 12:00:00 AM EDT [facility] Sprintec (28) 0.25 mg-35 mcg tablet 10/18/2020 12:00:00 AM EDT [facility] ([facility]) Acetaminophen 500 MG Oral Tablet 10/18/2020 12:00:00 AM EDT [facility] Misoprostol 0.2 MG Oral Tablet 10/18/2020 12:00:00 AM EDT [facility] ([facility]) Complete 14 mg iron-400 mcg tablet 09/30/2020 12:00:00 AM EDT [facility] Fluocinonide 0.5 MG/ML Topical Solution 07/23/2020 12:00:00 AM EDT eCW1 ([facility]) Clobetasol Propionate 0.5 MG/ML Medicated Shampoo [Aura sterling] 07/23/2020 12:00:00 AM EDT eCW1 ([facility]) Fluocinonide 0.5 MG/ML Topical Solution 07/23/2020 12:00:00 AM EDT eCW1 ([facility]) Clobetasol Propionate 0.5 MG/ML Medicated Shampoo [Aura sterling] 07/23/2020 12:00:00 AM EDT eCW1 ([facility]) Fluocinonide 0.5 MG/ML Topical Solution 07/23/2020 12:00:00 AM EDT eCW1 ([facility]) Clobetasol Propionate 0.5 MG/ML Medicated Shampoo [Aura sterling] 07/23/2020 12:00:00 AM EDT eCW1 ([facility]) Trazodone Hydrochloride 50 MG Oral Tablet [facility] ([facility]
== END 2021-04-02 21:13 | disposition home or self-care (01) ==
LOC: M ED 17:54
DX: S16.1XXA Strain of muscle, fascia and tendon at neck level, initial encounter (principal); V49.40XA Driver injured in collision with unspecified motor vehicles in traffic accident, initial encounter; Y92.9 Unspecified place or not applicable; Y93.9 Activity, unspecified; Y99.9 Unspecified external cause status

== ENCOUNTER → 2021-09-21 | Outpatient (REF) | payer OTHER ==
[2021-09-21 17:04] LABS: HEMOGLOBIN 13.1 g/dl (12.0-15.5); MEAN CORPUSCULAR HEMOGLOBIN 30.8 pg (27.0-33.0); MEAN CORPUSCULAR HGB CONC 35.4 g/dl (32.0-36.5); MEAN CORPUSCULAR VOLUME 86.9 fl (80.0-96.0); PLATELET COUNT, AUTOMATED 246 10^3/uL (150-450); RED BLOOD COUNT 4.26 10^6/uL (4.00-5.40); WHITE BLOOD COUNT 6.6 10^3/uL (4.0-10.0)
[2021-09-21 17:50] LABS: HCG, SERUM QUANTITATIVE 97118 MIU/ML; HEPATITIS B SURFACE ANTIGEN NEGATIVE (NEGATIVE)
[2021-09-21 18:15] LABS: HEPATITIS C VIRUS ABY INDEX 0.1 INDEX (<0.8)
[2021-09-21 18:16] LABS: HIV 1&2 SCREEN CENTAUR NEGATIVE (NEGATIVE)
== END ==
LOC: M LAB REF 16:05
PROVIDERS: ATTEND Obstetrics & Gynecology
DX: O36.80X0 Pregnancy with inconclusive fetal viability, not applicable or unspecified (principal); Z32.01 Encounter for pregnancy test, result positive

== ENCOUNTER → 2022-02-08 | Outpatient (CLI) | payer OTHER ==
[2022-02-08 11:24] LABS: HEMOGLOBIN 11.3 g/dl (12.0-15.5); MEAN CORPUSCULAR HEMOGLOBIN 30.6 pg (27.0-33.0); MEAN CORPUSCULAR HGB CONC 33.2 g/dl (32.0-36.5); MEAN CORPUSCULAR VOLUME 92.1 fl (80.0-96.0); PLATELET COUNT, AUTOMATED 197 10^3/uL (150-450); RED BLOOD COUNT 3.69 10^6/uL (4.00-5.40); WHITE BLOOD COUNT 11.4 10^3/uL (4.0-10.0)
== END ==
LOC: M LAB 09:24
PROVIDERS: ATTEND Obstetrics & Gynecology
DX: Z34.82 Encounter for supervision of other normal pregnancy, second trimester (principal)

== ENCOUNTER → 2022-04-12 | Outpatient (REF) | payer OTHER | LOC: M LAB REF 17:11 | PROVIDERS: ATTEND Obstetrics & Gynecology | DX: Z34.83 Encounter for supervision of other normal pregnancy, third trimester (principal) ==

== ENCOUNTER 2022-04-26 12:46 | Inpatient (IN) | payer BC, OTHER ==
[~2022-04-26] VITALS: Ht 152.4 cm; Wt 75.6 kg
[2022-04-26] VITALS (11 sets, daily range): BP systolic 110–126; BP diastolic 59–78
[2022-04-26] MEDS ORDERED: PRENTAB9 PO (13:35)
[2022-04-26] MEDS ORDERED: HOME MED LIST COMPLETE! XX SCH (13:40)
[2022-04-26] MEDS ORDERED: LIDOCAINE 1% MDV 20ML VIAL INFIL PRN (13:50)
[2022-04-26] MEDS ORDERED: TRANEXAMIC ACID INJection 1,000 MG in NS 100 ML IV PRN (13:50)
[2022-04-26] MEDS ORDERED: OXYTOCIN DRIP 30 UNITS in IV 1 EA IV PRN ×4 (13:50)
[2022-04-26] MEDS ORDERED: PENICILLIN G POTASSIUM 5 MU IV 5 MU in D5W MINI-BAG PLUS 100 ML IV STA (13:50)
[2022-04-26] MEDS ORDERED: CARBOPROST TROMETHAMINE 250 MCG/ML AMP IM PRN (13:50)
[2022-04-26] MEDS ORDERED: OXYTOCIN INJ 10UNITS/ML 1ML VIAL IM PRN (13:50)
[2022-04-26 14:14] LABS: HEMOGLOBIN 13.2 g/dl (12.0-15.5); MEAN CORPUSCULAR HEMOGLOBIN 30.9 pg (27.0-33.0); MEAN CORPUSCULAR HGB CONC 34.7 g/dl (32.0-36.5); PLATELET COUNT, AUTOMATED 237 10^3/uL (150-450); RED BLOOD COUNT 4.27 10^6/uL (4.00-5.40); WHITE BLOOD COUNT 13.7 10^3/uL (4.0-10.0)
[2022-04-26 14:36] LABS: URIC ACID 4.3 MG/DL (3.1-7.8)
[2022-04-26 14:38] LABS: LDH LACTATE DEHYDROGENASE 159 U/L (120-246)
[2022-04-26] MEDS: miSOPROStol 50MCG 1/2 TABLET PO SCH ×2 (14:38→18:48)
[2022-04-26 14:39] LABS: ALT/SGPT < 9 U/L (7.0-40); AST/SGOT 16 U/L (<34); BILIRUBIN,TOTAL 0.4 MG/DL (0.3-1.2); CREATININE FOR GFR 0.58 MG/DL (0.55-1.30); GLOMERULAR FILTRATION RATE > 60.0 (>60)
[2022-04-26 14:46] LABS: TOTAL PROTEIN,RANDOM URINE 14.4 MG/DL (0.0-14.0)
[2022-04-26] MEDS ORDERED: PEN G POT 3,000,000 UNIT/50 ML 3,000,000 UNIT in IV 1 EA IV SCH (17:50)
[2022-04-27] VITALS (10 sets, daily range): BP systolic 105–122; BP diastolic 54–75
[2022-04-27] MEDS: miSOPROStol 50MCG 1/2 TABLET PO SCH ×2 (04:34→08:51)
[2022-04-27] MEDS ORDERED: OXYTOCIN DRIP 30 UNITS in IV 1 EA IV SCH (20:05)
[2022-04-27] MEDS: LR 1,000 ML IV SCH (20:24)
[2022-04-27] MEDS ORDERED: PENICILLIN G POTASSIUM 5 MU IV 5 MU in D5W MINI-BAG PLUS 100 ML IV STA (21:41)
[2022-04-27] MEDS ORDERED: EPIDURAL/PCA KEYS XX PRN (22:25)
[2022-04-27] MEDS ORDERED: NALOXONE INJ 0.4MG/1ML VIAL IV PRN (22:25)
[2022-04-27] MEDS ORDERED: diphenhydrAMINE 50MG/ML VIAL IV PRN (22:25)
[2022-04-27] MEDS ORDERED: ePHEDrine SULFATE 25 MG/5 ML(5MG/ML) SYRINGE IVP PRN (22:25)
[2022-04-27] MEDS ORDERED: ONDANSETRON 4MG 2ML VIAL IV PRN (22:25)
[2022-04-27] MEDS ORDERED: LR 500 ML IV PRN (22:25)
[2022-04-28] VITALS (45 sets, daily range): BP systolic 95–141; BP diastolic 51–85
[2022-04-28] MEDS: PEN G POT 3,000,000 UNIT/50 ML 3,000,000 UNIT in IV 1 EA IV SCH ×4 (02:09→14:55)
[2022-04-28] MEDS: FENTANYL/ROPIVACAINE/NACL BAG 100 ML EPIDURAL SCH ×2 (02:10→15:32)
[2022-04-28] MEDS: LR 1,000 ML IV SCH ×3 (09:00→23:11)
[2022-04-28] MEDS ORDERED: AZITHROMYCIN INJ 500 MG, VIAL MATE ADAPTER 1 EACH in NS 250 ML IV ONE (16:45)
[2022-04-28] MEDS ORDERED: ceFAZolin SOD 2 GM in IV 1 EA IV ONE (16:45)
[2022-04-28] MEDS ORDERED: BICITRA 30ML SOLN UDC PO ONE (16:45)
[2022-04-28] MEDS ORDERED: MORPHINE PRES-FREE INJ 10 MG/10 ML VIAL As Ordered ONE (17:25)
[2022-04-28] MEDS ORDERED: ACETAMINOPHEN 1000MG 100ML IV BAG As Ordered ONE (17:26)
[2022-04-28] MEDS ORDERED: OXYTOCIN 30UNITS IN 0.9% NaCl 500ML IV BAG As Ordered ONE ×2 (17:26→18:51)
[2022-04-28] MEDS ORDERED: ONDANSETRON 4MG 2ML VIAL As Ordered ONE (17:31)
[2022-04-28] MEDS ORDERED: KETOROLAC 60MG 2ML VIAL As Ordered ONE (17:31)
[2022-04-28] MEDS ORDERED: METOCLOPRAMIDE INJ 10MG/2ML VIAL As Ordered ONE (17:31)
[2022-04-28] MEDS ORDERED: LIDOCAINE 2% W/EPINEPHRINE 20ML VIAL **PRES FREE As Ordered ONE (17:33)
[2022-04-28] MEDS ORDERED: SODIUM BICARBONATE 8.4% INJ 50MEQ 50ML VIAL As Ordered ONE (17:33)
[2022-04-28] MEDS ORDERED: PHENYLephrine 500MCG 5ML (100MCG/ML) SYRINGE As Ordered ONE (18:01)
[2022-04-28] MEDS ORDERED: METOCLOPRAMIDE INJ 10MG/2ML VIAL IV PRN ×2 (18:10)
[2022-04-28] MEDS ORDERED: diphenhydrAMINE 50MG/ML VIAL IV PRN (18:10)
[2022-04-28] MEDS ORDERED: SLF 3 ML SYR IV SCH ×2 (18:10)
[2022-04-28] MEDS ORDERED: NALOXONE INJ 0.4MG/1ML VIAL IV PRN ×2 (18:10)
[2022-04-28] MEDS ORDERED: **NOTE PATIENT COMMENT** MISC XX SCH (18:10)
[2022-04-28] MEDS ORDERED: ONDANSETRON 4MG 2ML VIAL IV PRN (19:15)
[2022-04-28] MEDS: ACETAMINOPHEN 500 MG TAB PO SCH (19:15)
[2022-04-28] MEDS ORDERED: DOCUSATE SODIUM 100MG CAPSULE PO PRN (19:15)
[2022-04-28] MEDS ORDERED: oxyCODONE 5MG TAB PO PRN ×2 (19:15)
[2022-04-28] MEDS ORDERED: SIMETHICONE 80MG CHEW TAB PO PRN (19:15)
[2022-04-28] MEDS ORDERED: OXYTOCIN DRIP 30 UNITS in IV 1 EA IV SCH (19:15)
[2022-04-28] MEDS ORDERED: RHOGAM 300MCG (1500IU) INJ IM SCH (19:15)
[2022-04-28] MEDS: KETOROLAC 30 MG/ML 1ML VIAL IV SCH (23:56)
[2022-04-29] VITALS (7 sets, daily range): BP systolic 98–123; BP diastolic 55–77
[2022-04-29] MEDS: ACETAMINOPHEN 500 MG TAB PO SCH ×4 (01:28→20:08)
[2022-04-29] MEDS: LR 1,000 ML IV SCH (06:17)
[2022-04-29] MEDS: KETOROLAC 30 MG/ML 1ML VIAL IV SCH ×2 (06:18→11:37)
[2022-04-29 07:03] LABS: HEMOGLOBIN 11.7 g/dl (12.0-15.5); MEAN CORPUSCULAR HGB CONC 34.4 g/dl (32.0-36.5); MEAN CORPUSCULAR VOLUME 90.2 fl (80.0-96.0); PLATELET COUNT, AUTOMATED 238 10^3/uL (150-450); RED BLOOD COUNT 3.77 10^6/uL (4.00-5.40); WHITE BLOOD COUNT 25.4 10^3/uL (4.0-10.0)
[2022-04-29] MEDS ORDERED: INFLUENZA QUADRIVALENT PF VACCINE 0.5ML SYRINGE IM.IMMUN ONE (09:00)
[2022-04-29] MEDS: PRENATAL VITAMINS CHEWABLE TABLET PO SCH (09:42)
[2022-04-29] MEDS: IBUPROFEN 600MG TAB PO SCH (18:33)
[2022-04-30] MEDS: ACETAMINOPHEN 500 MG TAB PO SCH ×2 (01:39→10:03)
[2022-04-30 02:00] VITALS: BP 116/65
[2022-04-30] MEDS: IBUPROFEN 600MG TAB PO SCH ×3 (05:52→11:34)
[2022-04-30 06:00] VITALS: BP 108/65
[2022-04-30] MEDS ORDERED: MEASLES,MUMPS,RUBELLA VACCINE INJ (MMR-II) SC.IMMUN ONE (09:00)
[2022-04-30 10:00] VITALS: BP 121/64
[2022-04-30] MEDS: PRENATAL VITAMINS CHEWABLE TABLET PO SCH (10:02)
[2022-04-30] MEDS ORDERED: OXYC1TAB23 PO (10:52)
[2022-04-30] MEDS ORDERED: IBUP-1022 PO (10:52)
[2022-04-30] MEDS ORDERED: COLA100C5 PO (10:52)
== END 2022-04-30 12:45 | disposition home or self-care (01) | DRG 540 ==
LOC: M LDI 12:46 → M OBS 04-28 21:27
PROVIDERS: ADMIT Advanced Practice Midwife; ATTEND Obstetrics & Gynecology
PROC: 3E0DXGC Introduction of Other Therapeutic Substance into Mouth and Pharynx, External Approach (ICD-10-PCS; 2022-04-26)
PROC: 3E033VJ Introduction of Other Hormone into Peripheral Vein, Percutaneous Approach (ICD-10-PCS; 2022-04-28)
PROC: 10D00Z1 Extraction of Products of Conception, Low, Open Approach (ICD-10-PCS; principal; 2022-04-28 17:45)
DX: O14.94 Unspecified pre-eclampsia, complicating childbirth (principal); O77.0 Labor and delivery complicated by meconium in amniotic fluid; Z37.0 Single live birth; Z3A.39 39 weeks gestation of pregnancy; O61.0 Failed medical induction of labor

== ENCOUNTER → 2022-08-07 | Outpatient (CLI) | payer BC, OTHER ==
[~2022-08-07] MED LIST changes: +COLA100C5 PO; +OXYC1TAB23 PO; +PRENTAB9 PO
[2022-08-07 13:16] LABS: BASO % 0.5 % (0.0-1.0); EOS # 0.1 10^3/uL (0.0-0.5); EOS % 0.8 % (0.0-3.0); HEMATOCRIT 39.4 % (36.0-47.0); HEMOGLOBIN 13.7 g/dl (12.0-15.5); LYMPH # 2.1 10^3/uL (1.5-5.0); LYMPH % 27.5 % (24.0-44.0); MEAN CORPUSCULAR HGB CONC 34.8 g/dl (32.0-36.5); MEAN CORPUSCULAR VOLUME 86.4 fl (80.0-96.0); MONO # 0.7 10^3/uL (0.0-0.8); MONO % 9.3 % (2.0-8.0); NEUTROPHILS # 4.6 10^3/uL (1.5-8.5); NEUTROPHILS % 61.5 % (36.0-66.0); PLATELET COUNT, AUTOMATED 288 10^3/uL (150-450); RED BLOOD COUNT 4.56 10^6/uL (4.00-5.40); WHITE BLOOD COUNT 7.5 10^3/uL (4.0-10.0)
[2022-08-07 13:50] LABS: ALBUMIN 3.8 G/DL (3.2-5.2); ALKALINE PHOSPHATASE 66 U/L (46-116); ALT/SGPT 22 U/L (7.0-40); AST/SGOT 19 U/L (<34); BILIRUBIN,DIRECT 0.1 MG/DL (<0.4); BILIRUBIN,TOTAL 0.3 MG/DL (0.3-1.2); BLOOD UREA NITROGEN 13 MG/DL (9-23); CALCIUM LEVEL 8.8 MG/DL (8.5-10.1); CARBON DIOXIDE LEVEL 27 MMOL/L (20-31); CHLORIDE LEVEL 106 MMOL/L (98-107); GLOMERULAR FILTRATION RATE > 60.0 (>60); GLUCOSE, FASTING 65 MG/DL (60-100); PHOSPHORUS LEVEL 3.5 MG/DL (2.5-4.9); SODIUM LEVEL 138 MMOL/L (136-145); TOTAL PROTEIN 6.9 G/DL (5.7-8.2)
[2022-08-07 13:53] LABS: HEPATITIS B SURFACE ANTIBODY POSITIVE (POSITIVE)
[2022-08-07 14:04] LABS: HEPATITIS B SURFACE ANTIGEN NEGATIVE (NEGATIVE)
[2022-08-07 14:25] LABS: HEPATITIS B CORE ANTIBODY IGM NEGATIVE (NEGATIVE)
[2022-08-07 16:39] LABS: HIV 1&2 SCREEN CENTAUR NEGATIVE (NEGATIVE)
== END ==
LOC: M LAB 12:24
PROVIDERS: ATTEND Family Medicine
DX: L40.0 Psoriasis vulgaris (principal)

== ENCOUNTER → 2022-11-27 | Outpatient (REF) | payer BC, OTHER ==
[2022-11-27 22:28] LABS: GC DNA AMPLIFICATION NEGATIVE (NEGATIVE)
== END ==
LOC: M WUC 19:30
PROVIDERS: ATTEND Physician Assistant
DX: R30.0 Dysuria (principal)

== ENCOUNTER 2024-07-16 16:46 | Emergency (ER) | payer BC, OTHER ==
[~2024-07-16] VITALS: Ht 149.9 cm; Wt 67.2 kg
[2024-07-16] MEDS: NS (Normal Saline) 0.9% 1,000 ML IV ONE (17:55)
[2024-07-16] MEDS: ONDANSETRON 4MG 2ML VIAL IV ONE (18:20)
[2024-07-16 18:34] LABS: BASO % 0.3 % (0.0-1.0); EOS % 0.2 % (0.0-3.0); HEMATOCRIT 36.4 % (36.0-47.0); HEMOGLOBIN 13.2 g/dl (12.0-15.5); LYMPH # 2.1 10^3/uL (1.5-5.0); LYMPH % 21.6 % (24.0-44.0); MEAN CORPUSCULAR HGB CONC 36.3 g/dl (32.0-36.5); MEAN CORPUSCULAR VOLUME 85.4 fl (80.0-96.0); MONO # 0.9 10^3/uL (0.0-0.8); MONO % 9.4 % (2.0-8.0); NEUTROPHILS # 6.7 10^3/uL (1.5-8.5); NEUTROPHILS % 68.3 % (36.0-66.0); PLATELET COUNT, AUTOMATED 214 10^3/uL (150-450); RED BLOOD COUNT 4.26 10^6/uL (4.00-5.40); WHITE BLOOD COUNT 9.7 10^3/uL (4.0-10.0)
[2024-07-16 18:37] LABS: APPEARANCE, URINE HAZY (CLEAR); BACTERIA, URINE AUTO NEGATIVE (NEGATIVE); BILIRUBIN, URINE AUTO NEGATIVE (NEGATIVE); BLOOD, URINE BLOOD NEGATIVE (NEGATIVE); COLOR, URINE YELLOW (YELLOW); GLUCOSE, URINE (UA) AUTO NEGATIVE (NEGATIVE); KETONE, URINE AUTO NEGATIVE (NEGATIVE); LEUKOCYTE ESTERASE, URINE AUTO NEGATIVE (NEGATIVE); MUCUS, URINE LARGE (NEGATIVE); NITRITE, URINE AUTO NEGATIVE (NEGATIVE); PROTEIN, URINE AUTO 1+ mg/dL (NEGATIVE); RBC, URINE AUTO 1 /HPF (0-3); SPECIFIC GRAVITY URINE AUTO 1.026 (1.002-1.035); SQUAMOUS EPITHELIAL CELL UR AU 4 /HPF (0-6); WBC, URINE AUTO 2 /HPF (0-3)
[2024-07-16 19:05] LABS: BLOOD UREA NITROGEN 7 MG/DL (9-23); CALCIUM LEVEL 8.8 MG/DL (8.5-10.1); CARBON DIOXIDE LEVEL 24 MMOL/L (20-31); CHLORIDE LEVEL 104 MMOL/L (98-107); CREATININE FOR GFR 0.51 MG/DL (0.55-1.30); GLOMERULAR FILTRATION RATE > 60.0 (>60); GLUCOSE, FASTING 85 MG/DL (60-100); SODIUM LEVEL 139 MMOL/L (136-145)
[2024-07-16] MEDS ORDERED: PYRI25TA2 PO (19:58)
[2024-07-16] MEDS ORDERED: ONDA-282 PO (19:58)
[2024-07-16] MEDS ORDERED: UNIS25TA3 PO (19:58)
[2024-07-16 20:09] VITALS: BP 107/67; TEMP 96.8; O2SAT 100
== END 2024-07-16 20:11 | disposition home or self-care (01) ==
LOC: M ED 16:46
DX: O21.1 Hyperemesis gravidarum with metabolic disturbance (principal); Z3A.01 Less than 8 weeks gestation of pregnancy
CPT/HCPCS: 80048; 81001; 85025; 96361; 96374; 99284; J2405

== ENCOUNTER → 2024-07-29 | Outpatient (CLI) | payer OTHER ==
[~2024-07-29] MED LIST changes: +ONDA-282 PO; +PYRI25TA2 PO; +UNIS25TA3 PO
[2024-07-29 14:47] LABS: HEMATOCRIT 37.9 % (36.0-47.0); HEMOGLOBIN 13.1 g/dl (12.0-15.5); MEAN CORPUSCULAR HEMOGLOBIN 30.2 pg (27.0-33.0); MEAN CORPUSCULAR HGB CONC 34.6 g/dl (32.0-36.5); MEAN CORPUSCULAR VOLUME 87.3 fl (80.0-96.0); PLATELET COUNT, AUTOMATED 234 10^3/uL (150-450); RED BLOOD COUNT 4.34 10^6/uL (4.00-5.40); WHITE BLOOD COUNT 8.5 10^3/uL (4.0-10.0)
[2024-07-29 15:09] LABS: GC DNA AMPLIFICATION NEGATIVE (NEGATIVE)
[2024-07-29 15:34] LABS: HIV 1&2 SCREEN NEGATIVE (NEGATIVE)
[2024-07-29 15:43] LABS: HEPATITIS C VIRUS ABY INDEX 0.03 INDEX (<0.8)
== END ==
LOC: M PLALAB 10:04
PROVIDERS: ATTEND Advanced Practice Midwife
DX: O30.049 Twin pregnancy, dichorionic/diamniotic, unspecified trimester (principal)

== ENCOUNTER → 2024-11-25 | Outpatient (CLI) | payer OTHER ==
[2024-11-25 13:57] LABS: PLATELET COUNT, AUTOMATED 193 10^3/uL (150-450)
[2024-11-25 14:32] LABS: TOTAL PROTEIN,RANDOM URINE 23.3 MG/DL (0.0-14.0)
[2024-11-25 14:40] LABS: LDH LACTATE DEHYDROGENASE 154 U/L (120-246)
[2024-11-25 14:41] LABS: ALT/SGPT 12 U/L (7.0-40); AST/SGOT 20 U/L (<34); CREATININE FOR GFR 0.61 MG/DL (0.55-1.30); GLOMERULAR FILTRATION RATE > 90.0 (>60); GLUCOSE CHALLENGE TEST 1 HOUR 94 MG/DL (LESS THAN 140)
[2024-11-25 14:49] LABS: Trichomonas vaginalis (AMP) NOT DETECTED (NEGATIVE)
[2024-11-25 15:13] LABS: GC DNA AMPLIFICATION NEGATIVE (NEGATIVE); HIV 1&2 SCREEN NEGATIVE (NEGATIVE)
[2024-11-25 15:19] LABS: HEPATITIS C VIRUS ABY INDEX 0.02 INDEX (<0.8)
== END ==
LOC: M PLALAB 10:10
PROVIDERS: ATTEND Obstetrics & Gynecology
DX: O30.042 Twin pregnancy, dichorionic/diamniotic, second trimester (principal)

== ENCOUNTER → 2024-12-03 | Outpatient (CLI) | payer OTHER | LOC: M WHC 13:54 | PROVIDERS: ATTEND Obstetrics & Gynecology | DX: O30.043 Twin pregnancy, dichorionic/diamniotic, third trimester (principal); Z3A.27 27 weeks gestation of pregnancy ==

== ENCOUNTER → 2024-12-23 | Outpatient (REF) | payer OTHER ==
[~2024-12-23] MED LIST changes: -IBUP-1022 PO; +IBUP600T42 PO
== END ==
LOC: M SFHCWAGY 14:50
PROVIDERS: ATTEND Obstetrics & Gynecology
DX: R30.0 Dysuria (principal)

== ENCOUNTER → 2025-01-07 | Outpatient (CLI) | payer OTHER | LOC: M RAD 13:52 | PROVIDERS: ATTEND Obstetrics & Gynecology | DX: O30.043 Twin pregnancy, dichorionic/diamniotic, third trimester (principal); Z3A.32 32 weeks gestation of pregnancy ==

== ENCOUNTER → 2025-01-09 | Outpatient (CLI) | payer OTHER | LOC: M RAD 09:51 | PROVIDERS: ATTEND Advanced Practice Midwife | DX: O30.049 Twin pregnancy, dichorionic/diamniotic, unspecified trimester (principal); Z3A.32 32 weeks gestation of pregnancy ==

== ENCOUNTER → 2025-01-15 | Outpatient (CLI) | payer OTHER | LOC: M RAD 09:27 | PROVIDERS: ATTEND Advanced Practice Midwife | DX: O30.049 Twin pregnancy, dichorionic/diamniotic, unspecified trimester (principal) ==

== ENCOUNTER 2025-01-27 14:54 | Outpatient (CLI) | payer OTHER ==
[~2025-01-27] VITALS: Ht 149.9 cm; Wt 76.5 kg
[2025-01-27 15:23] VITALS: BP 113/64
[2025-01-27] MEDS ORDERED: IRON1TAB2 PO (15:28)
[2025-01-27] MEDS ORDERED: FOLI1TAB11 PO (15:29)
[2025-01-27] MEDS ORDERED: FAMO40TA3 PO (15:33)
[2025-01-27 17:58] VITALS: BP 125/83
== END 2025-01-27 18:00 | disposition home or self-care (01) ==
LOC: M LDO 14:54
PROVIDERS: ATTEND Student in an Organized Health Care Education/Training Program
DX: O36.8130 Decreased fetal movements, third trimester, not applicable or unspecified (principal); O30.043 Twin pregnancy, dichorionic/diamniotic, third trimester; O34.211 Maternal care for low transverse scar from previous cesarean delivery; O99.013 Anemia complicating pregnancy, third trimester; O99.343 Other mental disorders complicating pregnancy, third trimester; D50.9 Iron deficiency anemia, unspecified; F41.8 Other specified anxiety disorders; Z3A.35 35 weeks gestation of pregnancy
CPT/HCPCS: 59025; 76815; 76819; 76820; G0463

== ENCOUNTER → 2025-01-28 | Outpatient (REF) | payer OTHER ==
[~2025-01-28] MED LIST changes: +FAMO40TA3 PO; +FOLI1TAB11 PO; +IRON1TAB2 PO
== END ==
LOC: M SFHCWAGY 15:11
PROVIDERS: ATTEND Obstetrics & Gynecology
DX: Z34.83 Encounter for supervision of other normal pregnancy, third trimester (principal)

== ENCOUNTER 2025-01-30 07:11 | Outpatient (CLI) | payer OTHER ==
[~2025-01-30] VITALS: Ht 162.6 cm; Wt 77.3 kg
[~2025-01-30 07:11] MED LIST changes: +ALBUTEROL SULFATE 2.5 MG/0.5 ML INH CONCENTRATE NEB SOLN INH PRN; +EPINEPHrine INJ 1 MG/ML 1ML AMP IM PRN; +diphenhydrAMINE 50 MG/ML VIAL IV PRN
[2025-01-30 07:30] VITALS: BP 118/71; O2SAT 98
[2025-01-30] MEDS: IRON SUCROSE 300 MG in NS 250 ML IV ONE (08:14)
[2025-01-30 09:00] VITALS: BP 114/58; O2SAT 96
[2025-01-30 10:15] VITALS: BP 117/66; O2SAT 99
== END 2025-01-30 10:15 | disposition home or self-care (01) ==
LOC: M INFU 07:11
PROVIDERS: ATTEND Obstetrics & Gynecology
DX: O99.013 Anemia complicating pregnancy, third trimester (principal); Z3A.35 35 weeks gestation of pregnancy
CPT/HCPCS: 96365; 96366; J1756

== ENCOUNTER 2025-02-17 05:38 | Inpatient (IN) | payer OTHER ==
[2025-02-17] VITALS (10 sets, daily range): BP systolic 110–126; BP diastolic 57–74; TEMP 97.1; O2SAT 95–98
[~2025-02-17] VITALS: Ht 149.9 cm; Wt 80.3 kg
[~2025-02-17 05:38] MED LIST changes: -ALBUTEROL SULFATE 2.5 MG/0.5 ML INH CONCENTRATE NEB SOLN INH PRN; -EPINEPHrine INJ 1 MG/ML 1ML AMP IM PRN; -diphenhydrAMINE 50 MG/ML VIAL IV PRN
[2025-02-17] MEDS ORDERED: HOME MED LIST COMPLETE! XX SCH (05:55)
[2025-02-17 06:31] LABS: PLATELET COUNT, AUTOMATED 225 10^3/uL (150-450)
[2025-02-17] MEDS: LACTATED RINGER'S 1000 ML IV STA (06:55)
[2025-02-17] MEDS ORDERED: MORPHINE PRES-FREE INJ 10 MG/10 ML VIAL As Ordered ONE (07:14)
[2025-02-17] MEDS ORDERED: ACETAMINOPHEN 1000MG/100ML IV BAG As Ordered ONE (07:15)
[2025-02-17] MEDS ORDERED: OXYTOCIN 30UNITS IN 0.9% NaCl 500ML IV BAG IV ONE (07:15)
[2025-02-17] MEDS ORDERED: ONDANSETRON 4MG/2ML VIAL As Ordered ONE (07:16)
[2025-02-17] MEDS ORDERED: KETOROLAC 30 MG/ML 1 ML VIAL As Ordered ONE (07:16)
[2025-02-17] MEDS ORDERED: dexAMETHasone 4 MG/ML 1 ML VIAL As Ordered ONE (07:16)
[2025-02-17] MEDS: BICITRA 30 ML SOLN UDC PO ONE (07:32)
[2025-02-17] MEDS: ceFAZolin SODIUM 2 GM in DEXTROSE 5% (D5W) ADV/MINI-BAG 50 ML IV ONE (07:32)
[2025-02-17] MEDS: LR 1,000 ML IV SCH ×2 (07:32→10:04)
[2025-02-17 07:33] LABS: HIV 1&2 SCREEN NEGATIVE (NEGATIVE)
[2025-02-17 07:40] LABS: HEPATITIS C VIRUS ABY INDEX < 0.02 INDEX (<0.8)
[2025-02-17] MEDS ORDERED: PHENYLephrine 500MCG 5ML (100MCG/ML) SYRINGE As Ordered ONE (09:04)
[2025-02-17] MEDS ORDERED: CALCIUM CARBONATE 500 MG CHEW U/D PO PRN (09:15)
[2025-02-17] MEDS ORDERED: PERCOCET 5MG/325MG TAB PO PRN ×2 (09:15)
[2025-02-17] MEDS ORDERED: RHOGAM 300MCG (1500IU) INJ IM SCH (09:15)
[2025-02-17] MEDS ORDERED: SIMETHICONE 80MG CHEW TAB PO PRN (09:15)
[2025-02-17] MEDS ORDERED: IBUPROFEN 800 MG TAB PO PRN (09:15)
[2025-02-17] MEDS ORDERED: MORPHINE 4 MG/ML 1 ML VIAL IV PRN (09:15)
[2025-02-17] MEDS ORDERED: ANUSOL HC CREAM 30 GM TOP PRN (09:15)
[2025-02-17] MEDS: OXYTOCIN DRIP 30 UNITS in IV 1 EA IV SCH (09:16)
[2025-02-17] MEDS ORDERED: PERCOCET PO (09:26)
[2025-02-17] MEDS ORDERED: COLA100C5 PO (09:26)
[2025-02-17] MEDS ORDERED: IBUP80TA PO (09:26)
[2025-02-17] MEDS ORDERED: FERR1TAB8 PO (09:26)
[2025-02-17] MEDS ORDERED: MEPERIDINE 25 MG/ML 1 ML VIAL IV PRN (09:50)
[2025-02-17] MEDS ORDERED: **NOTE PATIENT COMMENT** MISC XX SCH (09:50)
[2025-02-17] MEDS ORDERED: HYDROMORPHONE HCL 0.5 MG/0.5 ML SYRINGE IV PRN (09:50)
[2025-02-17] MEDS ORDERED: NALOXONE INJ 0.4 MG/1 ML VIAL IV PRN ×2 (09:50)
[2025-02-17] MEDS: SLF 3 ML SYR IV SCH (09:50)
[2025-02-17] MEDS: ONDANSETRON 4MG/2ML VIAL IV PRN ×2 (10:00→20:09)
[2025-02-17] MEDS: KETOROLAC 30 MG/ML 1 ML VIAL IV SCH (14:32)
[2025-02-17] MEDS: DOCUSATE SODIUM 100 MG CAPSULE PO SCH (20:10)
[2025-02-17] MEDS: METHYLERGONOVINE MALEATE 0.2 MG/ML 1 ML VIAL IM PRN (20:45)
[2025-02-17 22:04] LABS: PLATELET COUNT, AUTOMATED 205 10^3/uL (150-450)
[2025-02-18 02:00] VITALS: BP 116/67; O2SAT 97
[2025-02-18] MEDS: diphenhydrAMINE 50 MG/ML VIAL IV PRN (02:36)
[2025-02-18 05:57] VITALS: BP 104/67; O2SAT 95
[2025-02-18 07:15] LABS: PLATELET COUNT, AUTOMATED 175 10^3/uL (150-450)
[2025-02-18] MEDS: PRENATAL VITAMINS CHEWABLE TABLET PO SCH (08:37)
[2025-02-18] MEDS: FERROUS SULFATE 325 MG TAB PO SCH (08:37)
[2025-02-18 10:00] VITALS: BP 107/55; O2SAT 96
[2025-02-18] MEDS: IBUPROFEN 800 MG TAB PO PRN (11:27)
[2025-02-18] MEDS: ACETAMINOPHEN 500 MG TAB PO PRN (13:53)
[2025-02-18 14:00] VITALS: BP 121/67; O2SAT 96
[2025-02-18 17:58] VITALS: BP 112/67; O2SAT 98
[2025-02-18 22:00] VITALS: BP 112/73; O2SAT 99
[2025-02-19 01:59] VITALS: BP 112/73; O2SAT 99
[2025-02-19 05:49] VITALS: BP 133/82; O2SAT 97
[2025-02-19] MEDS: MEASLES,MUMPS,RUBELLA VACCINE INJ (MMR-II) SC.IMMUN ONE (07:39)
[2025-02-19] MEDS: FLUZONE VACCINE TRI PF(25-26) 0.5ML SYRINGE IM.IMMUN ONE (12:19)
== END 2025-02-19 13:50 | disposition home or self-care (01) | DRG 540 ==
LOC: M LDI 05:38 → EDSTATUS 07:30 → M OBS 11:03
PROVIDERS: ADMIT Obstetrics & Gynecology; ATTEND Obstetrics & Gynecology
PROC: 0UL70ZZ Occlusion of Bilateral Fallopian Tubes, Open Approach (ICD-10-PCS; 2025-02-17)
PROC: 10D00Z1 Extraction of Products of Conception, Low, Open Approach (ICD-10-PCS; principal; 2025-02-17 07:30)
DX: O34.211 Maternal care for low transverse scar from previous cesarean delivery (principal); Z37.2 Twins, both liveborn; Z3A.38 38 weeks gestation of pregnancy; O30.049 Twin pregnancy, dichorionic/diamniotic, unspecified trimester